=== PATIENT | male | born 1975 ===

== ENCOUNTER 2018-11-26 09:30 | Emergency (ER) | payer OTHER ==
[~2018-11-26] VITALS: Ht 179 cm; Wt 87.5 kg
[2018-11-26 09:44] VITALS: BP 102/68; PULSE 74; TEMP 97.7
[2018-11-26] MEDS ORDERED: NORCO 325 MG-51 TAB PO (10:13)
[2018-11-26] MEDS ORDERED: AMOXICILLIN 8751 TAB PO (10:13)
== END 2018-11-26 11:00 | disposition home or self-care (01) ==
LOC: COL.ER 09:30 → EDSEX 09:32 → COL.ER 11:00
DX: K04.7 Periapical abscess without sinus (principal)
CPT/HCPCS: J1885

== ENCOUNTER 2018-12-02 09:26 | Emergency (ER) | payer OTHER ==
[~2018-12-02] VITALS: Ht 179 cm; Wt 88.0 kg
[~2018-12-02 09:26] MED LIST: AMOXICILLIN 8751 TAB PO; NORCO 325 MG-51 TAB PO
[2018-12-02 09:39] VITALS: BP 104/62; PULSE 76
[2018-12-02 10:17] VITALS: TEMP 97.8
== END 2018-12-02 10:21 | disposition home or self-care (01) ==
LOC: COL.ER 09:26
DX: J30.2 Other seasonal allergic rhinitis (principal)
CPT/HCPCS: J8540